=== PATIENT | female | born 1975 | race Caucasian/White ===

== ENCOUNTER 2024-08-17 17:36 | Inpatient (IN) | payer MEDICARE ==
[2024-08-17] MEDS ORDERED: MAGNESIUM HYDROXIDE 2,400 MG/30 ML CUP PO PRN (21:35)
[2024-08-17] MEDS ORDERED: haloperidoL 5 MG TAB PO PRN (21:35)
[2024-08-17] MEDS ORDERED: ACETAMINOPHEN TAB 325 MG TAB PO PRN (21:35)
[2024-08-17] MEDS ORDERED: LORazepam 2 MG/ML INJ IM PRN (21:35)
[2024-08-17] MEDS ORDERED: HALOPERIDOL LACTATE 5 MG/ML 1 ML VIAL IM PRN (21:35)
[2024-08-17] MEDS ORDERED: MAG HYDROX/AL HYDROX/SIMETH 355 ML BOTTLE PO PRN (21:35)
[2024-08-18] MEDS: NICOTINE 14MG/24HR PATCH TRANSDERM SCH (01:23)
[2024-08-18] MEDS: QUEtiapine 25 MG TAB PO SCH (01:23)
[2024-08-18] MEDS: busPIRone HCl 10 MG TAB PO SCH (11:56)
[2024-08-18] MEDS: ARIPiprazole 5 MG TAB PO SCH (11:56)
[2024-08-18] MEDS: PANTOPRAZOLE 40 MG TABLET PO SCH (11:56)
[2024-08-18] MEDS: DULoxetine HCL 60 MG CAPSULE.DR PO SCH (11:57)
[2024-08-18] MEDS: IBUPROFEN 600 MG TAB PO PRN (11:58)
[2024-08-18] MEDS: LORazepam 1 MG TAB PO PRN (11:58)
--- NOTE | 2024-08-18 13:10 | P.HP ---
Psychiatric H&P - . H&P Date: 08/18/24 History & Physical: Allergies Allergy/AdvReac Type Severity Reaction Status Date / Time morphine Allergy Unknown Verified 08/17/24 21:33 Vital Signs Temp 99.1 F 08/18/24 00:37 Pulse Resp 17 08/18/24 00:37 BP 124/78 08/18/24 00:37 Pulse Ox 96 08/18/24 00:37 FiO2 Intake & Output 08/17/24 08/18/24 08/18/24 18:59 06:59 18:59 Weight 87.2 kg 08/18/24 09:35 IDENTIFYING DATA: Patient is a 48-year-old female. Lives at her parents home, with her son and his girlfriend. . Has one child. Collects disability HPI: Patient presented to the hospital on 08/18. Patient was a direct admit from [facility]. As per EPS note, "Patient was a transfer from [facility] and accepted by central intake. Per nurse at [facility] patient called 911 on herself and police brought pt to ER and petitioned her. Per nurse patient is expressing paranoia and believes people are trying to hack her phone to get her identity- patient thinks people are trying to steal her records and prescriptions. Patient presented to [facility] drowsy and was uncooperative with admission paperwork. Per nurse patient denies SI/HI but does not feel safe at her home. Patient did admit to nurse at [facility] to using cocaine". Upon today's assessment, she states she has been getting harassed for 3 years since her brother . She states her phone and her parents phone has been hacked for the past year. She states that she cannot call many people from her phone, and she states "they hang on my phone calls, listen to my phone calls, text my phone". She claims that she has books and books of examples of what they are doing. She claims she gets texts about her brother being a rat, and that's why shes . Patient becomes tearful when speaking of this. She states that they are responsible for her brother dying. He overdosed on heroin, crack and norco. She states her mood has been awful, and she has been mean, because "it's getting to her". She states she was dropped from her doctor, because her appointments were virtual, and every time she got on the appointment "they" would disconnect her phone. She had called the police to talk to them about this, and the police took her to the hospital, because she states they said that she was going to kill herself. She states she did not say that. She states she sleeps well, and that her appetite is good. Patient denies any suicidal or homicidal ideations intent or plan. At this time patient denies any auditory or visual hallucinations. Patient denies any flight of ideas or racing thoughts. Patient admits to using crack, meth and marijuana. Patient is a smoker. PAST PSYCHIATRIC HISTORY: Patient states that it has been years since she has been inpatient over 10 years ago, in [facility]. She states she has been diagnosed with anxiety. She did follow with [facility], but got dropped for missing appointments. She has not taken medication in a while. She denies any suicide attempts PMH:As per ER note ALLERGIES: as per EMR CHEMICAL DEPENDENCY HISTORY: as per HPI FAMILY PSYCHIATRIC/SUBSTANCE USE HISTORY: brother is schizophrenic..Mom is "messed up" SOCIAL HISTORY: Patient was born and raised in [place], [place]. She is a high school graduate, Some college. Retired from the [employer]. , one child. Has been to longterm once for theft. MENTAL STATUS EXAM: General Appearance: Patient appears to be stated age is alert, directable, and attempts to cooperate. Patient appears to have poor hygiene and grooming. Disheveled. Mildly overweight. Long hair. Behavior: Patient is seated without any agitated behavior. Minimizing need for treatment. tearful at times. Manipulative. Speech: Patient's speech is fluent and nonpressured. Mood/Affect: Patient reports their mood is depressed, affect is congruent and constricted. Suicidality/Homicidality: Patient denies having any homicidal ideation intent or plan. Denies any suicidal ideations intent or plan Perceptions: Patient denies any visual hallucinations and denies any auditory hallucinations Though content/process: There is evidence of any delusional thought content and thought process focused on people hacking her phone. Memory and concentration: AOX3, grossly intact for the purposes of this session. Can spell "WORLD" backwards Judgment and insight: poor STRENGTHS/WEAKNESSES: strength is that patient is resilient. Weakness is that patient has poor judgment and is impulsive INTELLECT: average IMPRESSIONS: psychosis, unspecified nicotine dependance cannabis use disorder opiate abuse cocaine abuse methamphetamine abuse benzodiazepine abuse PLAN: -Patient is admitted under involuntary status to [facility] for stabilization of psychiatric symptoms and safety. Patient has not signed adult voluntary form or medication consent and is placed in patient's chart. A second certification was completed and along with petition will be filed for court. -Medications : Will start patient on Seroquel 25mg po qhs for mood/sleep, Buspar 30mg po daily for anxiety, Cymbalta 60mg po daily for depression/anxiety, Librium 20mg po TID for withdraw, with plan to taper down. -Ativan and Haldol PRN for agitation/aggression -CIWA protocol with Ativan PRN for benzodiazepine withdrawal -Patient was counselled on substance abuse and desired to cut back on use -Patient was informed of the risks, benefits and side effects of the medication -Internal Medicine consult to perform medical evaluation and physical. -NRT - nicotine patch -SW on board for discharge planning. Encourage patient to participate in groups to work on coping skills. Will await deferral and court date.
[2024-08-18] MEDS: HYDROcodone/APAP 5-325MG 1 EACH TAB PO PRN (16:11)
--- NOTE | 2024-08-19 04:03 | P.CONS ---
History of Present Illness - Reason for Consult Consult date: 08/19/24 - History of Present Illness The patient is a 48-year-old female with a PMH of substance abuse who presented to the emergency room, brought in initially to [facility] for erratic behavior. The patient was transferred to [facility] where she was seen and evaluated accompanied by a [facility] RN. The patient reports that she has been recently using methamphetamine and crack cocaine inhaled. She is also concerned about her housing situation as she is currently likely foreclosed on. She does also report chronic lower back pain. She denied any additional complaints at the time of interview. Denied experiencing chest discomfort, shortness breath, fever, chills, cough, nausea, vomiting, abdominal pain, diarrhea. Review of systems: Pertinent positives and negatives as discussed in HPI, a complete review of sy stems was performed and all other systems are negative. Physical examination: General: non toxic, no distress, appears at stated age, normal weight Derm: no unusual rashes/lesions, no unusual ecchymoses, warm, dry Head: atraumatic, normocephalic, symmetric Eyes: EOMI, no lid lag, anicteric sclera ENT: Nose and ears atraumatic, no thrush, no pharyngeal erythema Neck: trachea midline, supple Mouth: no lip lesion, mucus membranes moist Cardiovascular: S1S2 reg, no murmur, no edema Lungs: CTA bilateral, no rhonchi, no rales , no accessory muscle use Abdominal: soft, nontender to palpation, no guarding Ext: no gross muscle atrophy, no contractures, Neuro: No gross focal neuro deficits noted Psych: Alert, oriented, appropriate affect Assessment: Polysubstance abuse Psychosis Plan: Advised on importance of cessation Defer management of psychosis to primary psychiatry service Thank you for allowing us to participate in the care of this patient. We will follow peripherally. Do not hesitate to contact us with questions. Someone can be reached from the [facility] hospitalist group at all hours of the day at [phone]. Medications and Allergies Home Medications Medication Instructions Recorded Confirmed Type ALPRAZolam [Xanax] 1 mg PO QID PRN 08/18/24 08/18/24 History DULoxetine HCL [Cymbalta] 120 mg PO DAILY 08/18/24 08/18/24 History Dextroamphetamine/Amphetamine 20 mg PO TID 08/18/24 08/18/24 History [Adderall] HYDROcodone/APAP 10-325MG [[place] 1 tab PO TID 08/18/24 08/18/24 History 10-325] Ibuprofen [Motrin] 800 mg PO BID PRN 08/18/24 08/18/24 History Pantoprazole Sodium [Protonix] 20 mg PO DAILY 08/18/24 08/18/24 History QUEtiapine [SEROquel] 25 mg PO HS 08/18/24 08/18/24 History busPIRone HCL [Buspar] 30 mg PO BID 08/18/24 08/18/24 History Allergies Allergy/AdvReac Type Severity Reaction Status Date / Time morphine Allergy Unknown Verified 08/18/24 10:23 Physical Exam Vitals: Vital Signs Pulse BP 08/18/24 16:13 120 H 107/79
--- NOTE | 2024-08-19 10:56 | P.PN ---
Progress Note - Text Progress Note Date: 08/19/24 Interval History: Patient was seen [wandering the hallways] and was directable and agreeable to speak with video game script writer in the office. She states she feels like a different person today, like the old her. She claims she has been off her medications for at least 2 weeks, and if feeling much better now that she has them back. She states that she had the sweats pretty bad, but she took her medication, and it alleviated the symptoms. She claims to have slept ok last night. She states that her appetite is good. [place] Gatherer did speak with the patient about the court process, the patient verbalized understanding. [place] Gatherer spoke to patient about rehab as well, patient does not want to go to rehab. She states she does not even want to do drugs, and she does not know why she turned to them. She wants to stay on the right path, taking her medication. At this time patient denies any suicidal or homicidal ideations, intent or plan. Patient denies any auditory, visual hallucinations and denies any paranoia or delusions. Patient denies any side effects from the medications and has been compliant with meds. MENTAL STATUS EXAM: General Appearance: Patient appears to be stated age is alert, directable, and attempts to cooperate. Patient appears to have improving hygiene and grooming. Mildly overweight. Long hair. Behavior: Patient is seated without any agitated behavior. Speech: Patient's speech is fluent and nonpressured. Mood/Affect: Patient reports their mood is improving, affect is congruent and constricted. Suicidality/Homicidality: Patient denies having any homicidal ideation intent or plan. Denies any suicidal ideations intent or plan Perceptions: Patient denies any visual hallucinations and denies any auditory hallucinations Though content/process: There is evidence of any delusional thought content and thought process more linear Memory and concentration: AOX3, grossly intact for the purposes of this session. Judgment and insight: poor IMPRESSIONS: psychosis, unspecified nicotine dependance cannabis use disorder opiate abuse cocaine abuse methamphetamine abuse benzodiazepine abuse PLAN: -Patient is admitted under involuntary status to [facility] for stabilization of psychiatric symptoms and safety. Patient has not signed adult voluntary form or medication consent and is placed in patient's chart. A second certification was completed and along with petition will be filed for court. -Medications : increase Seroquel 50mg po qhs for mood/sleep, Buspar 30mg po daily for anxiety, d/c Cymbalta and replace with Zoloft 50mg qhs for depression/anxiety, Librium 20mg po TID for withdraw, with plan to taper down. -Ativan and Haldol PRN for agitation/aggression -CIWA protocol with Ativan PRN for benzodiazepine withdrawal -NRT - nicotine patch -SW on board for discharge planning. Encourage patient to participate in groups to work on coping skills. Will await deferral and court date. hopeful for discharge next week if patient improves. refusing rehab at this time.
[2024-08-19 12:23] LABS: Basophils % (A) 1 %; Eosinophils % (A) 1 %; HGB 13.8 gm/dL (11.4-16.0); Lymphocytes # (A) 1.3 k/uL (1.0-4.8); Lymphocytes % (A) 22 %; MCH 29.9 pg (25.0-35.0); MCHC 32.9 g/dL (31.0-37.0); Mean Platelet Volume 6.9; Monocytes # (A) 0.2 k/uL (0-1.0); Monocytes % (A) 4 %; Neutrophils % (A) 71 %; Platelet Count 232 k/uL (150-450); RBC 4.62 m/uL (3.80-5.40); RDW 12.5 % (11.5-15.5); WBC 5.7 k/uL (3.8-10.6)
[2024-08-19 12:34] LABS: ALT 56 U/L (4-34); AST 37 U/L (14-36); African American GFR (CKD) >90 (>60 ml/min/1.73 sqM); Albumin 3.8 g/dL (3.5-5.0); Alkaline Phosphatase 65 U/L (38-126); Anion Gap 6 mmol/L; Blood Urea Nitrogen 13 mg/dL (7-17); Calcium 8.9 mg/dL (8.4-10.2); Carbon Dioxide 19 mmol/L (22-30); Chloride 111 mmol/L (98-107); Glucose 133 mg/dL (74-99); Non-African American GFR(CKD) >90 (>60 ml/min/1.73 sqM); Potassium 4.1 mmol/L (3.5-5.1); Sodium 136 mmol/L (137-145); Total Protein 6.6 g/dL (6.3-8.2)
[2024-08-19] MEDS: IBUPROFEN 800 MG TAB PO PRN (13:23)
[2024-08-19 18:04] LABS: Chol/HDL Ratio 3.39 Ratio; LDL Cholesterol,Calculated 155.2 mg/dL (0.0-131.0)
[2024-08-19] MEDS: QUEtiapine 50 MG TAB PO SCH (21:02)
[2024-08-19] MEDS: SERTRALINE 50 MG TAB PO SCH (21:03)
[2024-08-20 06:40] VITALS: RESP 18; TEMP 97
--- NOTE | 2024-08-20 11:24 | P.PN ---
Progress Note - Text Progress Note Date: 08/20/24 Interval History: Patient was seen in her room, and was directable and agreeable to speak with functional tester typewriters in the office. She was sleeping, but easily aroused. She stated she slept very well last night. She is not endorsing any depression or anxiety. She is thankful for the help and treatment she is receiving. She does again mention someone hacking into her phone, and her brothers phone, but is not obsessing on this. She endorses a good appetite, and is future orientated. At this time patient denies any suicidal or homicidal ideations, intent or plan. Patient denies any auditory, visual hallucinations and denies any paranoia or delusions. Patient denies any side effects from the medications and has been compliant with meds. MENTAL STATUS EXAM: General Appearance: Patient appears to be stated age is alert, directable, and attempts to cooperate. Patient appears to have improving hygiene and grooming. Mildly overweight. Long hair. Behavior: Patient is seated without any agitated behavior. Speech: Patient's speech is fluent and nonpressured. Mood/Affect: Patient reports their mood is improving, affect is congruent and constricted. mildly improving Suicidality/Homicidality: Patient denies having any homicidal ideation intent or plan. Denies any suicidal ideations intent or plan Perceptions: Patient denies any visual hallucinations and denies any auditory hallucinations Though content/process: There is lno evidence of any delusional thought content and thought process more linear Memory and concentration: AOX3, grossly intact for the purposes of this session. Judgment and insight: poor, mildly improving IMPRESSIONS: psychosis, unspecified nicotine dependance cannabis use disorder opiate abuse cocaine abuse methamphetamine abuse benzodiazepine abuse PLAN: -Patient is admitted under involuntary status to [facility] for stabilization of psychiatric symptoms and safety. Patient has not signed adult voluntary form or medication consent and is placed in patient's chart. A second certification was completed and along with petition will be filed for court. -Medications : increase Seroquel 75mg po qhs once tonight, increase to 100mg Friday night for mood/sleep, Buspar 30mg po daily for anxiety, Zoloft 50mg qhs for depression/anxiety, decrease Librium 10mg po QID for withdraw, with plan to taper down over the weekend -Ativan and Haldol PRN for agitation/aggression -CIWA protocol with Ativan PRN for benzodiazepine withdrawal -NRT - nicotine patch -SW on board for discharge planning. Encourage patient to participate in groups to work on coping skills. Deferral on Friday. hopeful for discharge early next week if patient improves. refusing rehab at this time.
[2024-08-20] MEDS: QUEtiapine 25 MG TAB PO ONE (20:54)
[2024-08-21] MEDS ORDERED: tiZANidine 4 MG TAB PO PRN (11:51)
--- NOTE | 2024-08-21 16:50 | P.PN ---
Progress Note - Text Interval history: Patient was seen [wandering the hallways] and was directable and agreeable to speak with fha underwriter. denies withdrawal symptoms. States that she is currently going to her menstrual period. Reports that she was being "harassed by a cyber bullying" and that her phone was intact.. At this time patient denies any suicidal or homicidal ideations intent or plan. Denies any Auditory or visual hallucinations. Patient denies any side effects from the medications and has been compliant with meds. Mental status exam: General Appearance: [Patient appears to be stated age is alert, directable, and cooperative.] Behavior: [No agitated behavior. Patient is calm and directable] Speech: Patient's speech is fluent and nonpressured. Mood/Affect: Mood is improving mildly, affect is congruent and constricted. Suicidality/Homicidality: Patient denies having any suicidal or homicidal ideation intent or plan. Perceptions: Patient denies any auditory or visual hallucinations. Though content/process: [has paranoid delusions and thought process is linear and goal-directed.] Memory and concentration: AOX3, grossly intact for the purposes of this session Judgment and insight: improving mildly Assessment/Plan: Continue with current diagnosis. Patient continues to meet criteria for inpatient psychiatric admission for symptom stabilization and safety.[Patient will be maintained on current psychotropic medication regimen.] Monitor for medication compliance and for any psychotropic medication side effects. Will continue to monitor ongoing response to treatment. Encouraged participation in milieu.
[2024-08-21] MEDS: QUEtiapine 100 MG TAB PO SCH (21:33)
--- NOTE | 2024-08-22 23:15 | P.PN ---
Progress Note - Text Interval history: No withdrawal symptoms, SI, HI, AVH, side effects Mental status exam: General Appearance: [Patient appears to be stated age is alert, directable, and cooperative.] Behavior: [No agitated behavior. Patient is calm and directable] Speech: Patient's speech is fluent and nonpressured. Mood/Affect: Mood is improving mildly, affect is congruent and constricted. Suicidality/Homicidality: No suicidal or homicidal ideation intent or plan. Perceptions: No auditory or visual hallucinations. Though content/process: [ thought process is linear and goal-directed.] Memory and concentration: AOX3, grossly intact for the purposes of this session Judgment and insight: improving mildly Assessment/Plan: Continue with current diagnosis. Patient continues to meet criteria for inpatient psychiatric admission for symptom stabilization and safety.[Patient will be maintained on current psychotropic medication regimen.] Monitor for medication compliance and for any psychotropic medication side effects. Will continue to monitor ongoing response to treatment. Encouraged participation in milieu.
[2024-08-23 09:09] VITALS: BP 108/73; PULSE 99
[2024-08-23 09:35] LABS: Appearance,Urine Clear (Clear); Bilirubin,Urine Negative (Negative); Blood,Urine Small (Negative); Color,Urine Yellow; Glucose,Urine (UA) Negative (Negative); Hyaline Casts,Urine 1 /lpf (0-2); Ketones,Urine Negative (Negative); Leukocyte Esterase,Urine Negative (Negative); Mucus,Urine Occasional /hpf; Nitrite,Urine Negative (Negative); PH, Urine 5.5 (5.0-8.0); Protein,Urine Negative (Negative); RBC,Urine 1 /hpf (0-5); Specific Gravity,Urine 1.025 (1.001-1.035); Squamous Epithelial Cell,Urine 2 /hpf (0-4); Urobilinogen,Urine <2.0 mg/dL (<2.0); WBC,Urine 1 /hpf (0-5)
[2024-08-23] MEDS ORDERED: hydrOXYzine pamoate 25 MG CAP PO PRN (10:20)
--- NOTE | 2024-08-23 11:00 | P.DS ---
Providers Date of admission: 08/18/24 00:02 Expected date of discharge: 08/23/24 Attending physician: Radhames Domingo MD Consults: 08/17/24 21:35 Consult Physician Routine Consulting Provider: Barrie Concepcion Consult Reason/Comments: H & P Do you want consulting provider notified?: Yes Primary care physician: Darwin Delacruz - Discharge Diagnosis(es) (1) Unspecified psychosis Current Visit: Yes Status: Acute Priority: High (2) Nicotine dependence Current Visit: Yes Status: Acute Priority: Low (3) Cannabis use disorder Current Visit: Yes Status: Acute Priority: Medium (4) Opiate abuse, continuous Current Visit: Yes Status: Acute Priority: High (5) Cocaine abuse Current Visit: Yes Status: Acute Priority: High (6) Methamphetamine abuse Current Visit: Yes Status: Acute Priority: High (7) Benzodiazepine abuse Current Visit: Yes Status: Acute Priority: Medium Hospital Course: Admission HPI: Admission note was completed by fiction and nonfiction prose writer" Patient presented to the hospital on 08/18. Patient was a direct admit from [facility]. As per EPS note, "Patient was a transfer from [facility] and accepted by central intake. Per nurse at [facility] patient called 911 on herself and police brought pt to ER and petitioned her. Per nurse patient is expressing paranoia and believes pe ople are trying to hack her phone to get her identity- patient thinks people are trying to steal her records and prescriptions. Patient presented to [facility] drowsy and was uncooperative with admission paperwork. Per nurse patient denies SI/HI but does not feel safe at her home. Patient did admit to nurse at [facility] to using cocaine". Upon today's assessment, she states she has been getting ross ssed for 3 years since her brother . She states her phone and her parents phone has been hacked for the past year. She states that she cannot call many people from her phone, and she states "they hang on my phone calls, listen to my phone calls, text my phone". She claims that she has books and books of examples of what they are doing. She claims she gets texts about her brother being a rat, and that's why shes . Patient becomes tearful when speaking of this. She states that they are responsible for her brother dying. He overdosed on heroin, crack and norco. She states her mood has been awful, and she has been mean, because "it's getting to her". She states she was dropped from her doctor, because her appointments were virtual, and every time she got on the appointment "they" would disconnect her phone. She had called the police to talk to them about this, and the police took her to the hospital, because she states they said that she was going to kill herself. She states she did not say that. She states she sleeps well, and that her appetite is good. Patient denies any suicidal or homicidal ideations intent or plan. At this time patient denies any auditory or visual hallucinations. Patient denies any flight of ideas or racing thoughts. Patient admits to using crack, meth and marijuana. Patient is a smoker." Hospital course: Upon admission to the unit patient was admitted involuntarily on a petition and certificate and a second certificate was completed and faxed with the courts. Patient ended up signing a deferral with the regulatory attorney and agreeing to treatment. Patient got along well with other patients on the unit and followed unit protocol. Patient was compliant with the medications and denied any side effects throughout hospital course. Patient was started on Librium taper due to benzodiazepine withdrawal. Seroquel increased to dose of 100 mg nightly for mood stabilization/psychosis, BuSpar 30 mg daily for anxiety, Vistaril as needed for anxiety, Zoloft 100 mg nightly for depression/anxiety. Patient spoke of her stressors and engaged in therapy both group and individual. Patient was also seen by medical team for history and physical exam. Throughout the course of the hospitalization patient gradually improved with regards to mood, anxiety, psychosis, delusions, sleep and returned back to their baseline level of functioning. On the day of discharge patient denied any suicidal or homicidal ideations intent or plan denied any auditory or visual hallucinations. Patient endorsed wanting to live for her health and her family. The patient denied any access to guns or weapons. Patient denied any paranoia and did not endorse any delusions. Patient does have a significant history of substance abuse and was counseled on abstaining from all substances including alcohol and marijuana. Patient was offered however declined inpatient substance-abuse rehab. Patient elected to do outpatient substance use treatment program through [facility]. Patient was also counseled on the medications and need for regular compliance and was encouraged to follow-up with their outpatient appointment for mental health and also for primary care. Prior to discharge a family meeting will be arranged by social media designer to answer any questions and ensure safety upon discharge. Patient will be discharged back home today with mental health follow-up. Mental status exam: General Appearance: Patient appears to be stated age is alert, pleasant, and cooperative. Patient is in no acute distress and has improved hygiene and grooming Behavior: Patient is calmly seated without any agitated behavior. Speech: Patient's speech is fluent and nonpressured. Mood/Affect: Patient reports their mood is "better", affect is congruent and euthymic. Suicidality/Homicidality: Patient denies having any suicidal or homicidal ideation intent or plan. Perceptions: Patient denies any auditory or visual hallucinations. Though content/process: There is no evidence of any delusional thought content and thought process is linear and goal-directed. More future oriented Memory and concentration: AOX3, grossly intact for the purposes of this session. Can spell "WORLD" backwards correctly. Judgment and insight: Chronically poor, however has improved with guarded prognosis Impression: psychosis, unspecified nicotine dependance cannabis use disorder opiate abuse cocaine abuse methamphetamine abuse benzodiazepine abuse Plan: -Continue with discharge today as patient has improved and stabilized psychiatrically and is not currently an imminent threat to herself and/or others. Patient will remain at chronically elevated risk for harm to self and/or others due to her impulsivity and polysubstance abuse. -Continue medications: Seroquel 100 mg nightly for mood stabilization/psychosis, BuSpar 30 mg daily for anxiety, Vistaril 50 mg twice daily as needed for anxiety, Zoloft 100 mg nightly for mood/anxiety. Librium was tapered off. -Patient was counseled on the need for medication compliance and appropriate follow-up at mental health and also primary care for medical issues. Patient verbalized understanding and agreed. -Social work to arrange for and conduct family meeting to ensure safety upon discharge and answer any questions/concerns. Social work also to arrange for patients follow up appointments with [facility] for psychiatric care along with follow up with primary care provider. -Patient counseled on abstaining from recreational drugs and marijuana and alcohol. Was informed/educated on the adverse effects on their physical and mental health. Patient verbally agreed and understood. Patient was offered substance abuse treatment however declined at this time. -Patient was instructed to return to the hospital or seek immediate medical care if their psychiatric or medical symptoms do worsen or reoccur. Allergies Allergy/AdvReac Type Severity Reaction Status Date / Time morphine Allergy Unknown Verified 08/18/24 10:23 Laboratory Results WBC 5.7 k/uL (3.8-10.6) 08/19/24 11:37 RBC 4.62 m/uL (3.80-5.40) 08/19/24 11:37 Hgb 13.8 gm/dL (11.4-16.0) 08/19/24 11:37 Hct 42.0 % (34.0-46.0) 08/19/24 11:37 MCV 91.0 fL (80.0-100.0) 08/19/24 11:37 MCH 29.9 pg (25.0-35.0) 08/19/24 11:37 MCHC 32.9 g/dL (31.0-37.0) 08/19/24 11:37 RDW 12.5 % (11.5-15.5) 08/19/24 11:37 Plt Count 232 k/uL (150-450) 08/19/24 11:37 MPV 6.9 08/19/24 11:37 Neutrophils % 71 % 08/19/24 11:37 Lymphocytes % 22 % 08/19/24 11:37 Monocytes % 4 % 08/19/24 11:37 Eosinophils % 1 % 08/19/24 11:37 Basophils % 1 % 08/19/24 11:37 Neutrophils # 4.0 k/uL (1.3-7.7) 08/19/24 11:37 Lymphocytes # 1.3 k/uL (1.0-4.8) 08/19/24 11:37 Monocytes # 0.2 k/uL (0-1.0) 08/19/24 11:37 Eosinophils # 0.0 k/uL (0-0.7) 08/19/24 11:37 Basophils # 0.0 k/uL (0-0.2) 08/19/24 11:37 Sodium 136 mmol/L (137-145) L 08/19/24 11:37 Potassium 4.1 mmol/L (3.5-5.1) 08/19/24 11:37 Chloride 111 mmol/L (98-107) H 08/19/24 11:37 Carbon Dioxide 19 mmol/L (22-30) L 08/19/24 11:37 Anion Gap 6 mmol/L 08/19/24 11:37 BUN 13 mg/dL (7-17) 08/19/24 11:37 Creatinine 0.62 mg/dL (0.52-1.04) 08/19/24 11:37 Est GFR (CKD-EPI)AfAm >90 (>60 ml/min/1.73 sqM) 08/19/24 11:37 Est GFR (CKD-EPI)NonAf >90 (>60 ml/min/1.73 sqM) 08/19/24 11:37 Glucose 133 mg/dL (74-99) H 08/19/24 11:[address] Glu mg/dL 120 mg/dL 08/19/24 11:37 Hemoglobin A1c 5.8 % (<=6.0) 08/19/24 11:37 Calcium 8.9 mg/dL (8.4-10.2) 08/19/24 11:37 Total Bilirubin 1.0 mg/dL (0.2-1.3) 08/19/24 11:37 AST 37 U/L (14-36) H 08/19/24 11:37 ALT 56 U/L (4-34) H 08/19/24 11:37 Alkaline Phosphatase 65 U/L (38-126) 08/19/24 11:37 Total Protein 6.6 g/dL (6.3-8.2) 08/19/24 11:37 Albumin 3.8 g/dL (3.5-5.0) 08/19/24 11:37 Triglycerides 74.00 mg/dL (0.00-149.00) 08/19/24 11:37 Cholesterol 241.00 mg/dL (0.00-200.00) H 08/19/24 11:37 LDL Cholesterol, Calc 155.2 mg/dL (0.0-131.0) H 08/19/24 11:37 VLDL Cholesterol, Calc 14.80 mg/dL (5.00-40.00) 08/19/24 11:37 HDL Cholesterol 71.00 mg/dL (40.00-60.00) H 08/19/24 11:37 Cholesterol/HDL Ratio 3.39 Ratio 08/19/24 11:37 TSH 0.472 mIU/L (0.465-4.680) 08/19/24 11:37 Urine Color Yellow 08/23/24 09:18 Urine Appearance Clear (Clear) 08/23/24 09:18 Urine pH 5.5 (5.0-8.0) 08/23/24 09:18 Ur Specific [place] 1.025 (1.001-1.035) 08/23/24 09:18 Urine Protein Negative (Negative) 08/23/24 09:18 Urine Glucose (UA) Negative (Negative) 08/23/24 09:18 Urine Ketones Negative (Negative) 08/23/24 09:18 Urine Blood Small (Negative) H 08/23/24 09:18 Urine Nitrite Negative (Negative) 08/23/24 09:18 Urine Bilirubin Negative (Negative) 08/23/24 09:18 Urine Urobilinogen <2.0 mg/dL (<2.0) 08/23/24 09:18 Ur Leukocyte Esterase Negative (Negative) 08/23/24 09:18 Urine RBC 1 /hpf (0-5) 08/23/24 09:18 Urine WBC 1 /hpf (0-5) 08/23/24 09:18 Ur Squamous Epith Cells 2 /hpf (0-4) 08/23/24 09:18 Hyaline Casts 1 /lpf (0-2) 08/23/24 09:18 Urine Mucus Occasional /hpf (None) H 08/23/24 09:18 Urine HCG, Qual Not Detected (Not Detectd) 08/23/24 09:18 Vital Signs Temp 97 F L 08/20/24 06:39 Pulse 99 08/23/24 09:09 Resp 18 08/21/24 03:40 BP 108/73 08/23/24 09:09 Pulse Ox 100 08/21/24 03:40 FiO2 Intake & Output 08/22/24 08/23/24 08/23/24 18:59 06:59 18:59 Weight 89.2 kg Patient Condition at Discharge: Stable Plan - Discharge Summary Discharge Rx Participant: No New Discharge Prescriptions: New busPIRone HCl [Buspar] 30 mg PO DAILY 30 Days #90 tab Nicotine 14Mg/24Hr Patch [Habitrol] 1 patch TRANSDERM DAILY 14 Days #14 patch Pantoprazole [Protonix] 40 mg PO AC-BID 30 Days #60 tab QUEtiapine [SEROquel] 100 mg PO HS 30 Days #30 tab hydrOXYzine pamoate [Vistaril] 50 mg PO BID PRN 30 Days #120 cap PRN Reason: Anxiety tiZANidine [Zanaflex] 4 mg PO TID PRN tab PRN Reason: Muscle Spasticity Sertraline [Zoloft] 100 mg PO HS 30 Days #30 tab Continue Ibuprofen [Motrin] 800 mg PO BID PRN PRN Reason: Pain HYDROcodone/APAP 10-325MG [[place] 10-325] 1 tab PO TID Discontinued Pantoprazole Sodium [Protonix] 20 mg PO DAILY busPIRone HCL [Buspar] 30 mg PO BID QUEtiapine [SEROquel] 25 mg PO HS DULoxetine HCL [Cymbalta] 120 mg PO DAILY Dextroamphetamine/Amphetamine [Adderall] 20 mg PO TID ALPRAZolam [Xanax] 1 mg PO QID PRN PRN Reason: Anxiety Discharge Medication List HYDROcodone/APAP 10-325MG [[place] 10-325] 1 tab PO TID 08/18/24 [History] Ibuprofen [Motrin] 800 mg PO BID PRN 08/18/24 [History] Nicotine 14Mg/24Hr Patch [Habitrol] 1 patch TRANSDERM DAILY 14 Days #14 patch 08/23/24 [Rx] Pantoprazole [Protonix] 40 mg PO AC-BID 30 Days #60 tab 08/23/24 [Rx] QUEtiapine [SEROquel] 100 mg PO HS 30 Days #30 tab 08/23/24 [Rx] Sertraline [Zoloft] 100 mg PO HS 30 Days #30 tab 08/23/24 [Rx] busPIRone HCl [Buspar] 30 mg PO DAILY 30 Days #90 tab 08/23/24 [Rx] hydrOXYzine pamoate [Vistaril] 50 mg PO BID PRN 30 Days #120 cap 08/23/24 [Rx] tiZANidine [Zanaflex] 4 mg PO TID PRN tab 08/23/24 [Rx] Patient Instructions/Handouts: How to Stop Smoking (DC), Polysubstance Abuse (ED), Psychotic Disorder (DC) Activity/Diet/Wound Care/Special Instructions: Avoid the use of street drugs and alcohol. Take all medications as prescribed. When you are in need of refills on your medications, please contact your medical provider and/or outpatient psychiatrist/provider to have this done. Please go to your scheduled outpatient appointment for aftercare treatment. If symptoms return or become worse, call the crisis line at and/or go to the nearest emergency room for evaluation. National Suicide Hotline [facility] [facility] confidentiality statement: "The information contained in this communication, including attachments, is confidential, may be privileged, and is intended only for the use of the named recipient(s). Unauthorized use, disclosure, forwarding or copying is strictly prohibited and may be unlawful. If you have received this communication in error, please notify me IMMEDIATELY at the phone number or pager listed above." Discharge Disposition: HOME SELF-CARE
[2024-08-23 13:41] LABS: Urine Alcohol Negative (Negative); Urine Barbiturate Negative (Negative); Urine Cocaine Negative (Negative); Urine Methadone Negative (Negative); Urine Opiates Positive (Negative); Urine Phencyclidine Negative (Negative)
[2024-08-23] MEDS ORDERED: SERTRALINE 100 MG TAB PO SCH (21:00)
== END 2024-08-23 13:55 | disposition home or self-care (01) | DRG 885 ==
LOC: 3MHU 08-18 00:02
PROVIDERS: ADMIT Psychiatry & Neurology Psychiatry; ATTEND Psychiatry & Neurology Psychiatry
DX: F29 Unspecified psychosis not due to a substance or known physiological condition (principal); F13.239 Sedative, hypnotic or anxiolytic dependence with withdrawal, unspecified; F11.10 Opioid abuse, uncomplicated; F12.10 Cannabis abuse, uncomplicated; F14.10 Cocaine abuse, uncomplicated; F15.10 Other stimulant abuse, uncomplicated; F17.200 Nicotine dependence, unspecified, uncomplicated; F22 Delusional disorders; F41.9 Anxiety disorder, unspecified; G89.29 Other chronic pain; Z63.4 Disappearance and death of family member; Z79.899 Other long term (current) drug therapy
CPT/HCPCS: 80053; 80061; 80306; 81001; 81025; 83036; 84443; 85025